=== PATIENT | female | born 1995 ===

== ENCOUNTER 2025-06-03 13:00 | Inpatient (IN) | payer OTHER ==
[~2025-06-03] VITALS: Ht 165.1 cm; Wt 64.0 kg
[2025-06-10] VITALS (7 sets, daily range): BP systolic 97–121; BP diastolic 57–72
[2025-06-10] MEDS ORDERED: RINGERS SOLUTION,LACTATED 1,000 ML IV SCH (08:15)
[2025-06-10] MEDS ORDERED: OXYTOCIN 500 ML IV SCH (08:15)
[2025-06-10] MEDS ORDERED: PRENATA CHEWAB1 EACH PO (08:20)
[2025-06-10 08:37] LABS: BASO % 0.3 % (0.1-1.2); EOS # 0.06 (0.04-0.54); EOS % 0.9 % (0.7-7.0); LYMPH # 1.04 (1.18-3.74); LYMPH % 15.2 % (19.3-53.1); MEAN PLATELET VOLUME 11.60 fl (9.4-12.4); MONO # 0.44 (0.24-0.82); MONO % 6.4 % (4.7-12.5); NEUT # 5.25 (1.56-6.13); NEUT % 76.8 % (34.0-71.1); RED CELL DISTRIBUTION WIDTH 11.6 % (11.6-14.4)
[2025-06-10 09:00] LABS: URINE APPEARANCE Clear; URINE BILIRRUBIN Negative (NEGATIVE); URINE BLOOD Negative; URINE COLOR Yellow; URINE GLUCOSE Negative (NEGATIVE); URINE KETONE Negative (NEGATIVE); URINE LEUKOCYTE Small; URINE NITRATE Negative; URINE PROTEIN Negative (NEGATIVE); URINE UROBILINOGEN 0.2 E.U./dl
[2025-06-10 09:03] LABS: URINE BACTERIA 622.8 uL (0.0-1933); URINE EPITHELIAL CELLS 15.2 uL (0.0-38.8); URINE WBC 48.0 uL (0.0-23.2)
[2025-06-10 09:09] LABS: INR < 0.93
[2025-06-10 09:19] LABS: URINE CAST 0.43 uL (0.0-1.40); URINE RBC 1.6 uL (0.0-20.8)
[2025-06-10 09:20] LABS: ALT/SGPT 36.0 U/L (12-78); AST/SGOT 42.0 U/L (15-37); BILIRUBIN TOTAL 0.37 mg/dL (0.3-1.2); BUN CREA RATIO 24.0 (7.0-25.0); CREATININE SERUM 0.54 mg/dL (0.55-1.02); GFR 133.47; GLOBULINA 3.7 G/DL (2.4-3.5); GLUCOSE FASTING 67.0 mg/dL (65-100); OSMOLALITY SERUM 274.0 MOSM/KG (275-295)
[2025-06-10] MEDS ORDERED: LIDOCAINE HCL 1% 10ML VIAL IJ ONE (15:45)
[2025-06-10] MEDS ORDERED: CHLORHEXIDINE GLUCONATE 120 ML BOTTLE TOP ONE (15:45)
[2025-06-10] MEDS ORDERED: ACETAMINOPHEN 500 MG GEL..CAP PO PRN (15:45)
[2025-06-10] MEDS ORDERED: ERYTHROMYCIN BASE OPHT 1GM EACH TUBE OP ONE (15:45)
[2025-06-10] MEDS ORDERED: OXYTOCIN 1,000 ML IV SCH (15:45)
[2025-06-10] MEDS ORDERED: BENZOCAINE/MENTHOL 90 ML BOTTLE TOP SCH (17:00)
[2025-06-10] MEDS ORDERED: HYDROCORTISONE 2.5% 30 GM TUBE RECTAL SCH (17:00)
[2025-06-11 01:30] VITALS: BP 99/63
[2025-06-11 02:11] LABS: BASO % 0.2 % (0.1-1.2); EOS # 0.01 (0.04-0.54); EOS % 0.1 % (0.7-7.0); LYMPH # 1.35 (1.18-3.74); LYMPH % 8.8 % (19.3-53.1); MEAN PLATELET VOLUME 11.60 fl (9.4-12.4); MONO # 0.81 (0.24-0.82); MONO % 5.3 % (4.7-12.5); NEUT # 13.00 (1.56-6.13); NEUT % 85.2 % (34.0-71.1); RED CELL DISTRIBUTION WIDTH 11.7 % (11.6-14.4)
[2025-06-11 08:00] VITALS: BP 102/64
[2025-06-11 16:00] VITALS: BP 109/65
[2025-06-12 00:49] VITALS: BP 119/77
[2025-06-12 10:07] VITALS: BP 115/72
== END 2025-06-12 17:06 | disposition home or self-care (01) | DRG 807 ==
LOC: OB/GYN 06-10 07:16 → LDR 06-10 07:16 → OB/GYN 06-10 13:00
PROVIDERS: ADMIT Specialist; ATTEND Specialist
PROC: 10E0XZZ Delivery of Products of Conception, External Approach (ICD-10-PCS; principal; 2025-06-10)
PROC: 0HQ9XZZ Repair Perineum Skin, External Approach (ICD-10-PCS; 2025-06-10)
PROC: 3E033VJ Introduction of Other Hormone into Peripheral Vein, Percutaneous Approach (ICD-10-PCS; 2025-06-10)
PROC: 4A1HXCZ Monitoring of Products of Conception, Cardiac Rate, External Approach (ICD-10-PCS; 2025-06-10)
DX: O70.0 First degree perineal laceration during delivery (principal); Z37.0 Single live birth; O48.0 Post-term pregnancy; Z3A.40 40 weeks gestation of pregnancy